=== PATIENT | female | born 1995 | race Caucasian/White ===

== ENCOUNTER 2018-12-10 01:03 | Emergency (ER) | payer OTHER, MEDICAID ==
[2018-12-10] MEDS: SOD CHLORIDE 0.9% 650 ML IV (01:35)
[2018-12-10 01:43] LABS: ADD MAN DIFF? NO
[2018-12-10 01:47] LABS: WHITE BLOOD COUNT 15.4 10^3/ul (4.8-10.8)
[2018-12-10 01:47] LABS: BASOPHILS % 0.3 % (0.0-2.0); HEMOGLOBIN 12.7 g/dl (12.0-16.0); LYMPHOCYTES # 2.2 10^3/ul (0.8-2.9); LYMPHOCYTES % 14.5 % (15.0-51.0); MEAN CORPUSCULAR HEMOGLOBIN 25.5 pg (29.0-33.0); MEAN CORPUSCULAR HGB CONC 33.4 g/dl (32.0-37.0); MEAN CORPUSCULAR VOLUME 76.3 fl (82.0-101.0); MEAN PLATELET VOLUME 10.2 fl (7.4-10.4); MONOCYTE # 1.1 10^3/ul (0.3-0.9); MONOCYTES % 6.8 % (0.0-11.0); NEUTROPHILS % 77.9 % (39.0-77.0); PLATELET COUNT 500 10^3/UL (140-415); RED BLOOD COUNT 4.98 10^6/ul (4.20-5.40); RED CELL DISTRIBUTION WIDTH 15.1 % (11.5-14.5)
[2018-12-10 01:51] LABS: MODE ROOM AIR; MetHgb Venous 0.3 %; Sample Type Blood venous; Site VENOUS LINE; Venous COHb 0.4 %; Venous Fraction OxyHgb 44.6 %; Venous Oxygen Sat 44.9 mmHG (55.0-75.0); Venous Total Hemglobin 12.8 g/dl
[2018-12-10 02:06] LABS: ANION GAP 19 (5-13); BLOOD UREA NITROGEN 30 mg/dl (7-20); CALCIUM 10.4 mg/dl (8.4-10.2); CARBON DIOXIDE 21 mmol/L (21-31); CHLORIDE 85 mmol/L (97-110); CREATININE 0.92 mg/dl (0.44-1.00); Estimated GFR > 60 mL/min (>60); MAGNESIUM 2.2 mg/dl (1.7-2.5); PHOSPHORUS 5.7 mg/dl (2.5-4.9); POTASSIUM 4.9 mmol/L (3.5-5.1); SODIUM 125 mmol/L (135-144)
[2018-12-10 02:19] LABS: GLUCOSE 756 mg/dl (70-220)
[2018-12-10] MEDS: SOD CHLORIDE 0.9% 1,000 ML IV ×2 (02:48→04:07)
[2018-12-10] MEDS: INSULIN REGULAR, HUMAN 100 UNIT/1 ML 3ML VIAL SC ×2 (02:50→04:12)
== END 2018-12-10 07:00 | disposition home or self-care (01) ==
LOC: E/R 01:03
DX: E11.65 Type 2 diabetes mellitus with hyperglycemia (principal); F17.210 Nicotine dependence, cigarettes, uncomplicated; D72.829 Elevated white blood cell count, unspecified; D47.3 Essential (hemorrhagic) thrombocythemia; R10.84 Generalized abdominal pain; F19.10 Other psychoactive substance abuse, uncomplicated; Z79.4 Long term (current) use of insulin
CPT/HCPCS: 36415; 80048; 82803; 82962; 83735; 84100; 85025; 96372; 99284-25